=== PATIENT | male | born 1950 | race Caucasian/White ===

== ENCOUNTER 2017-06-05 10:13 | Inpatient (IN) | payer MEDICARE, BC ==
[2017-05-31 18:29] LABS: BASOPHILS 0.2 %; BASOPHILS ABSOLUTE 0.02 10/3/uL (0.0-0.16); EOSINOPHILS 1.7 %; EOSINOPHILS ABSOLUTE 0.16 10/3/uL (0.0-0.53); IMMATURE GRANULOCYTES 0.3 %; IMMATURE GRANULOCYTES ABSOLUTE 0.03 10/3/uL (0.0-0.11); LYMPHOCYTES 29.2 %; LYMPHOCYTES ABSOLUTE 2.71 10/3/uL (0.67-4.30); MEAN CORPUS HGB CONC 32.4 g/dL (32.0-36.0); MEAN PLATELET VOLUME 9.8 fL (9.2-13.0); MONOCYTES 7.5 %; NEUTROPHILS 61.1 %; NEUTROPHILS ABSOLUTE 5.66 10/3/uL (2.02-8.40); PLATELET COUNT 323 10/3/uL (150-400); RBC DISTRIBUTION WIDTH 16.4 % (12.0-16.0)
[2017-05-31 18:30] LABS: HEMOGLOBIN 14.9 g/dL (13.6-17.8); MANUAL DIFF NO %; MEAN CORPUSCULAR VOLUME 89.5 fL (80-100); RED CELL COUNT 5.14 10/6/uL (4.7-6.1); WHITE BLOOD CELLS 9.3 10/3/uL (4.5-10.5)
[2017-05-31 18:49] LABS: BUN (BLOOD UREA NITROGEN) 18 MG/DL (6-23); CHLORIDE, SERUM 103 MMOL/L (96-112); CO2 (CARBON DIOXIDE) 29 MMOL/L (24-34); CREATININE 1.06 MG/DL (0.70-1.30); GFR AFRICAN AMERICAN 83 ML/MIN (>=60); GFR NON AFRICAN AMERICAN 72 ML/MIN (>=60)
[2017-05-31 18:50] LABS: CALCIUM, SERUM 9.9 MG/DL (8.5-10.4); GLUCOSE, SERUM 89 MG/DL (60-99); POTASSIUM, SERUM 5.4 MMOL/L (3.5-5.3); SODIUM, SERUM 141 MMOL/L (135-148)
[~2017-06-05] VITALS: Ht 172.7 cm; Wt 92.5 kg
--- NOTE | ~2017-06-05 | PREOPHP ---
PreOp History and Physical [facility] [address] [place]. [address] NAME: PIERRE GONZALES : 46 STATUS : ADM IN PAT#: [id number] AGE: 66 ADM/REG DATE : 06/05/17 MR#: [id number] REPORT SERV DATE: 06/05/17 DICTATED BY: LONG ULLOA DATE: 06/05/17 REPORT STATUS : Draft TRANSCRIBED BY: MODDante DATE: 06/05/17 CHIEF COMPLAINT: Back pain, leg pain. HISTORY OF PRESENT ILLNESS: This is the 66-year-old male with previous history of an L5-S1 fusion. He has gone on to develop a pseudoarthrosis with L5-S1, which was actually carried out some time ago, and he has developed foraminal stenosis at L3-4 and L4-5, particularly L4 5. His pain has become rather severe and he has gone through all the entire medication therapy and usual conservative care. He also has a grade 1 spondylolisthesis at L4-5. Having failed conservative care and with all the above findings, the patient will be admitted and there will be hardware removal at L5-S1. Then there will be a lateral approach for an anterior retroperitoneal approach using oblique lateral diskectomy and interbody cage insertion and interbody fusion followed by posterior percutaneous instrumentation from L3- S1. There will also be a posterolateral fusion at L5-S1 where there was pseudarthrosis. Prior to the surgery, I have discussed the risks, benefits, alternatives, expectations in great detail. Consent form has been signed. Also because of the complexity of surgery and need to identify correct level of surgery intraoperatively as well as desire to carry out the safest and most precise dissection, I feel intraoperative navigation is mandatory. PAST MEDICAL HISTORY: Included chronic anemia, osteoarthritis, hypertension, non-insulin- dependent diabetes mellitus type 2, hypercholesterolemia, gastroesophageal reflux disease, and sleep apnea. PAST SURGICAL HISTORY: Facet injections and radiofrequency ablation of the facet joints, colonoscopy, inguinal herniorrhaphy, lumbar fusion at L5-S1, carpal tunnel release, and a left cubital tunnel release. CURRENT MEDICATIONS: Include gabapentin, metformin, Prilosec, pravastatin. ALLERGIES: CODEINE AND MORPHINE. SOCIAL HISTORY: He is , 2 dependents, right-hand dominant. Has been a former smoker, no longer smoking. Does not use smokeless tobacco. Does not use alcohol. FAMILY HISTORY: Father and mother due to coronary artery disease. REVIEW OF SYSTEMS: The patient has had chronic pain syndromes. Denies any recent chest pain, pressure, or shortness of breath. PHYSICAL EXAMINATION: VITAL SIGNS: He is 5 feet 8 inches, 216 pounds, BMI 32.8. GENERAL: He is alert, cooperative, well oriented, ambulates independently. HEENT: Grossly normal. LUNGS: Clear to auscultation. HEART: Rate is regular and rhythmic. PreOp History and Physical [address] [address] NAME: PIERRE GONZALES : 46 STATUS : ADM IN [facility]#: [id number] AGE: 66 ADM/REG DATE : 06/05/17 MR#: [id number] REPORT SERV DATE: 06/05/17 DICTATED BY: LONG ULLOA DATE: 06/05/17 REPORT STATUS : Draft TRANSCRIBED BY: SHIRA DATE: 06/05/17 ABDOMEN: Soft with good bowel sounds. No peritoneal signs are noted. MUSCULOSKELETAL: The spine itself has no gross deformities. The previous posterior incisions are well healed. There is limited range of motion of the spine due to pain. Patella and Achilles reflexes are both absent. There is no significant neurologic weakness in either of the muscle groups of the lower extremities. There is some mild decreased sensation in a stocking glove distribution below the knees distally around the ankles and feet. Toes are downgoing. No ankle clonus is found. Orthopedically, there is no pain with movement of hips, knees, or ankles. Crystal signs are negative. Fabere sign is mildly positive and the patient has a history of some DJD of the SI joints as well as injections of the joint. His pulses in all four extremities. No abnormal skin lesions are found. ASSESSMENT AND RECOMMENDATIONS: As listed above. /SHIRA Long Ulloa D.O. / [id number] CC: Lenore Jones M.D.
--- NOTE | ~2017-06-05 | OP ---
Record Of Operation [facility] [address] [place]. [address] NAME: PIERRE GONZALES : 46 STATUS : ADM IN PAT#: [id number] AGE: 66 ADM/REG DATE : 06/05/17 MR#: [id number] REPORT SERV DATE: 06/06/17 DICTATED BY: LONG ULLOA DATE: 06/06/17 REPORT STATUS : Draft TRANSCRIBED BY: MODDante DATE: 06/06/17 DATE OF PROCEDURE: PREOPERATIVE DIAGNOSES: 1. Severe disk degeneration and foraminal stenosis, L3-4, L4-5. 2. Grade 1 spondylolisthesis, L4-5. 3. Prior fusion with pseudoarthrosis, L5-S1. POSTOPERATIVE DIAGNOSES: 1. Severe disk degeneration and foraminal stenosis, L3-4, L4-5. 2. Grade 1 spondylolisthesis, L4-5. 3. Prior fusion with pseudoarthrosis, L5-S1. PROCEDURES: 1. Microscopic and navigation-assisted surgery. 2. Anterior retroperitoneal oblique lateral interbody diskectomy, interbody [place] cage insertion, interbody fusion (OLIF) L3-4, L4-5. 3. Hardware removal, L5-S1. 4. Posterolateral spinal fusion, L5-S1. 5. Posterior percutaneous Voyager instrumentation, L3 to S1. HEAD BUYER TOBACCO: Fam Larose. ANESTHESIA: General. ESTIMATED BLOOD LOSS: 100 mL. INDICATIONS FOR SURGERY: Indications for surgery and risks were explained. They are listed in the last office note as well as the history and physical. See that for detail. DESCRIPTION OF PROCEDURE: Antibiotic prophylaxis was given. Neurophysiology monitoring leads were inserted. The patient was brought to the operative suite. General anesthetic including endotracheal intubation was administered. Daniel catheter was placed with sterile technique. The patient was placed in lateral decubitus position the left side was up. A small bolster was placed at the iliac crest. The axillary roll was placed. The patient was then secured to the Sushil spine frame using wide tape across the chest, the hips, and the knees with the hips being left in neutral alignment as well as the knees. Isolation drapes were placed. The left side of the abdomen, left flank, and left thoracolumbar spine was scrubbed with Hibiclens solution. DuraPrep was painted. Sterile drapes were applied. Because of the complexity of surgery, and the need to identify the correct level of surgery intraoperatively, as well as the desire to carry out the safest and most precise dissection, I felt that intraoperative navigation was mandatory. A small stab wound was carried out over the left posterior superior iliac spine. A percutaneous pin with navigational frame attached was inserted in PSIS. Intraoperative CT Record Of Operation [facility] [address] [place]. [address] NAME: PIERRE GONZALES : 46 STATUS : ADM IN PAT#: [id number] AGE: 66 ADM/REG DATE : 06/05/17 MR#: [id number] REPORT SERV DATE: 06/06/17 DICTATED BY: LONG ULLOA DATE: 06/06/17 REPORT STATUS : Draft TRANSCRIBED BY: SHIRA DATE: 06/06/17 scan with O-arm obtained, CT information was used to register the navigational system. With navigational assistance, I identified the L3-4 and L4-5 level. Approximately 6 cm anterior to the disk and vertebral bodies in line or parallel with the disk space itself. A slightly oblique 4 cm skin incision was carried out over the left side of the abdomen. The external oblique muscle was opened in line with the muscle fibers. The internal oblique was opened in parallel with the disk space of L3-4. I then bluntly dissected into the retroperitoneum and I was able to palpate the quadratus lumborum muscle as well as the spinous process of L4. The psoas muscle was palpated and the anterior edge of the psoas was easily defined. A blunt retractor was then placed at the anterior edge of the psoas muscle. My clothing sales assistant retracted the muscle posteriorly. A second blunt retractor was placed at the anterolateral corner of the anulus and protected the vessels medially. A navigational probe was placed at the Dexter zone 1 and 2 junction. Muscle dilator was inserted followed placement of a tubular retractor attached to an arm mount on the table. The microscope was sterilely draped and used throughout the remainder of procedure. Inside the circumference of the retractor, we stimulated with neurophysiology monitoring and this was all normal. A rectangular annulectomy was carried out. An anterolateral diskectomy was completed with curettes, rongeurs, and disk keeley. As a part of the oblique lateral interbody approach, an orthogonal maneuver was used to remove the endplate cartilage and removed the disk. Also, contralateral annulus was released. The orthogonal maneuver was also used as a part of trialing. Ultimately, we chose a 12 mm in height, 22 mm in depth, and 12 degree lordotic, 55 mm in length cage. Wounds were irrigated. The cage was filled with the grafting material which was an allograft. The cage was inserted again using the orthogonal maneuver and after it was properly positioned, the apprentice painter hand was removed. We carefully inspected the retroperitoneum as we carefully withdrew the retractor and no abnormal findings were noted. The internal oblique muscle was closed with a 0 PDS sutures. We then moved distally, a second opening was carried out parallel with the disk space of L4- 5 through the internal oblique muscle, with the external oblique having been opened earlier. Once again, we palpated into the retroperitoneum. Ultimately, we placed a tubular retractor as noted above and carried out the same identical diskectomy, interbody trial, and interbody cage insertion as before. The retractor was removed. The internal oblique was closed followed by closure of the external oblique with all 0 PDS suture. The subcutaneous tissue was closed with 2-0 Vicryl sutures, 2-0 vertical mattress nylon suture used for skin closure. Sterile dressings were applied. The patient was then repositioned into a prone position after being properly positioned, the bony prominences were carefully padded. The thoracolumbar spine was scrubbed with Hibiclens solution. DuraPrep was painted. Sterile drapes were applied. Navigational system was re-registered. We then used navigational assistance to identify the location of the hardware at L5-S1. Approximately an 8 cm skin incision was carried out lateral to the facet joints of L3-4, L4-5, and over the hardware of L5-S1. We did this on left and right side. A blunt navigated probe was placed through the fascia and muscle and docked over the hardware at L5-S1. The hardware was identified and removed by removing the Record Of Operation [facility] [place] [id number] [facility] [place]. [address] NAME: PIERRE GONZALES : 46 STATUS : ADM IN PAT#: [id number] AGE: 66 ADM/REG DATE : 06/05/17 MR#: [id number] REPORT SERV DATE: 06/06/17 DICTATED BY: LONG ULLOA DATE: 06/06/17 REPORT STATUS : Draft TRANSCRIBED BY: MODL DATE: 06/06/17 set screws, the rishabh, and each of the pedicle screws. The posterolateral gutter including the outer portion of the facet joint and the transverse processes of L5, as well as the proximal sacral ala was decorticated. The wounds were irrigated. The combination of allograft and an extra-small dosage of bone protein was placed in the posterolateral gutter at L5-S1. I moved to the left side and exposed the hardware, removed the hardware, and did the same identical posterolateral fusion. Finally, a percutaneous Voyager pedicle tap and screw apprentice painter hand were used to place a jet pilot hole in the pedicles of L3 and L4. We already had jet pilot holes at L5 and S1 bilateral. Each of the jet pilot holes were tapped followed by placement of polyaxial screws which were placed with screw extenders at L3, 4, 5, and S1 bilateral. The contoured lordotic rishabh was then placed through the screw extenders, reduced into the tulip of the pedicle screws. The set screws were inserted and tightened with a torque wrench providing rigid stability. After the screw orthotic assistant was removed, intraoperative CT scan with O-arm repeated showing good position of all implants. Wounds were irrigated. The fascial opening was closed with interrupted #1 Vicryl suture. The subcutaneous tissue was closed with 2-0 Vicryl sutures, 2 0 vertical mattress nylon suture used for skin closure. Sterile dressings were applied. The patient awakened, extubated, and taken to recovery room in satisfactory having tolerated the procedure well. Sponge, needle, and instrument counts were correct. No intraoperative complications noted. /SHIRA Long Ulloa D.O. / [id number] CC: Lenore Jones M.D.
[~2017-06-05 10:13] MED LIST: ASAB PO; CYMBALTA60 PO; DIL4TAB PO; GLUCOPHAGE1000 MG PO; GLUCPH PO; GREEN TEA EXTRACT; LISINOPRIL40 MG PO; METHOC500B PO; MOBIC15 MG PO; NEUR300 PO; NORV10 PO; OXECTA5 MG PO; PRILO PO; SAW PALMETT1 PO; SAW PALMETT2 PO; VITAMIN D1000 UNI1 PO; VITAMIN D31000 UNIT PO; ZESTRIL40 MG PO; [UNRECOGNIZED DRUG - OTHER]
[2017-06-05 18:39] LABS: BASOPHILS 0.1 %; BASOPHILS ABSOLUTE 0.03 10/3/uL (0.0-0.16); EOSINOPHILS 0.4 %; EOSINOPHILS ABSOLUTE 0.08 10/3/uL (0.0-0.53); HEMOGLOBIN 12.8 g/dL (13.6-17.8); IMMATURE GRANULOCYTES 0.7 %; IMMATURE GRANULOCYTES ABSOLUTE 0.16 10/3/uL (0.0-0.11); LYMPHOCYTES ABSOLUTE 2.94 10/3/uL (0.67-4.30); MEAN CORPUS HGB CONC 32.7 g/dL (32.0-36.0); MEAN CORPUSCULAR HEMOGLOB 28.4 pg (26.0-34.0); MEAN CORPUSCULAR VOLUME 86.9 fL (80-100); MEAN PLATELET VOLUME 9.1 fL (9.2-13.0); MONOCYTES 5.1 %; MONOCYTES ABSOLUTE 1.16 10/3/uL (0.21-1.20); NEUTROPHILS 80.7 %; NEUTROPHILS ABSOLUTE 18.31 10/3/uL (2.02-8.40); PLATELET COUNT 234 10/3/uL (150-400); RBC DISTRIBUTION WIDTH 15.8 % (12.0-16.0); RED CELL COUNT 4.51 10/6/uL (4.7-6.1)
[2017-06-05 18:40] LABS: HEMATOCRIT 39.2 % (40.0-51.0); MANUAL DIFF NO %; WHITE BLOOD CELLS 22.7 10/3/uL (4.5-10.5)
[2017-06-05 18:51] LABS: BUN (BLOOD UREA NITROGEN) 15 MG/DL (6-23); CALCIUM, SERUM 8.3 MG/DL (8.5-10.4); CHLORIDE, SERUM 104 MMOL/L (96-112); CO2 (CARBON DIOXIDE) 26 MMOL/L (24-34); CREATININE 1.11 MG/DL (0.70-1.30); GFR AFRICAN AMERICAN 79 ML/MIN (>=60); GFR NON AFRICAN AMERICAN 68 ML/MIN (>=60); GLUCOSE, SERUM 137 MG/DL (60-99); POTASSIUM, SERUM 4.7 MMOL/L (3.5-5.3); SODIUM, SERUM 136 MMOL/L (135-148)
[2017-06-06 05:20] LABS: BASOPHILS 0.1 %; BASOPHILS ABSOLUTE 0.01 10/3/uL (0.0-0.16); EOSINOPHILS 0 %; HEMATOCRIT 40.2 % (40.0-51.0); HEMOGLOBIN 13.2 g/dL (13.6-17.8); IMMATURE GRANULOCYTES 0.3 %; IMMATURE GRANULOCYTES ABSOLUTE 0.05 10/3/uL (0.0-0.11); LYMPHOCYTES 6.2 %; LYMPHOCYTES ABSOLUTE 1.05 10/3/uL (0.67-4.30); MEAN CORPUS HGB CONC 32.8 g/dL (32.0-36.0); MEAN CORPUSCULAR HEMOGLOB 28.7 pg (26.0-34.0); MEAN CORPUSCULAR VOLUME 87.4 fL (80-100); MEAN PLATELET VOLUME 9.5 fL (9.2-13.0); MONOCYTES 6.6 %; MONOCYTES ABSOLUTE 1.12 10/3/uL (0.21-1.20); NEUTROPHILS 86.8 %; NEUTROPHILS ABSOLUTE 14.83 10/3/uL (2.02-8.40); PLATELET COUNT 257 10/3/uL (150-400); RBC DISTRIBUTION WIDTH 15.6 % (12.0-16.0); WHITE BLOOD CELLS 17.1 10/3/uL (4.5-10.5)
[2017-06-06 05:25] LABS: MANUAL DIFF NO %
[2017-06-06 05:36] LABS: BUN (BLOOD UREA NITROGEN) 13 MG/DL (6-23); CALCIUM, SERUM 8.1 MG/DL (8.5-10.4); CHLORIDE, SERUM 102 MMOL/L (96-112); CO2 (CARBON DIOXIDE) 25 MMOL/L (24-34); CREATININE 1.06 MG/DL (0.70-1.30); GFR AFRICAN AMERICAN 83 ML/MIN (>=60); GFR NON AFRICAN AMERICAN 72 ML/MIN (>=60); GLUCOSE, SERUM 143 MG/DL (60-99); POTASSIUM, SERUM 4.7 MMOL/L (3.5-5.3); SODIUM, SERUM 138 MMOL/L (135-148)
[2017-06-08] MEDS ORDERED: NEUR300 PO (11:46)
[2017-06-08] MEDS ORDERED: METHOC500B PO (11:46)
[2017-06-08] MEDS ORDERED: DIL2TAB PO (11:47)
[2017-06-08] MEDS ORDERED: DIL4TAB PO (11:47)
== END 2017-06-08 12:28 | disposition home or self-care (01) | DRG 454 ==
LOC: ENRESERV → ENRESERVTM → ENRESERVDT → SDC/OF 10:13 → 3SO 10:13 → PACU 18:04 → 3SO 20:27
PROVIDERS: Orthopaedic Surgery Orthopaedic Surgery of the Spine
PROC: 0SG10A0 Fusion of 2 or more Lumbar Vertebral Joints with Interbody Fusion Device, Anterior Approach, Anterior Column, Open Approach (ICD-10-PCS; principal; 2017-06-06)
PROC: 0SG3071 Fusion of Lumbosacral Joint with Autologous Tissue Substitute, Posterior Approach, Posterior Column, Open Approach (ICD-10-PCS; 2017-06-06)
PROC: 0ST20ZZ Resection of Lumbar Vertebral Disc, Open Approach (ICD-10-PCS; 2017-06-06)
PROC: 0SP304Z Removal of Internal Fixation Device from Lumbosacral Joint, Open Approach (ICD-10-PCS; 2017-06-06)
PROC: 4A11X4G Monitoring of Peripheral Nervous Electrical Activity, Intraoperative, External Approach (ICD-10-PCS; 2017-06-06)
DX: M51.36 Other intervertebral disc degeneration, lumbar region (principal); M96.0 Pseudarthrosis after fusion or arthrodesis; I10 Essential (primary) hypertension; E11.9 Type 2 diabetes mellitus without complications; G47.33 Obstructive sleep apnea (adult) (pediatric); D64.9 Anemia, unspecified; M48.06 Spinal stenosis, lumbar region; M43.16 Spondylolisthesis, lumbar region; G89.4 Chronic pain syndrome; E78.00 Pure hypercholesterolemia, unspecified; K21.9 Gastro-esophageal reflux disease without esophagitis; Z79.84 Long term (current) use of oral hypoglycemic drugs; Z79.899 Other long term (current) drug therapy; Z88.5 Allergy status to narcotic agent; Z87.891 Personal history of nicotine dependence
CPT/HCPCS: 36415; 80048; 82962; 85025; 86850; 86900; 86901; 87641; 88300; 88304; 88311; 93005; 97110-GP; 97116-GP; 97161-GP; A9270-GY; C1713; G8978-CK-GP; G8979-CI-GP; J0690; J1644; J2250; J2370; J2405; J2550; J2710; J3010; J3370